=== PATIENT | male | born 1970 | race African-American/Black ===

== ENCOUNTER 2017-04-13 11:40 | Emergency (ER) | payer OTHER ==
[~2017-04-13] VITALS: Ht 170.2 cm; Wt 109.0 kg
[2017-04-13 12:11] LABS: POINT-OF-CARE METER ID UU14100415
[2017-04-13 12:51] LABS: ADD MIUA? NO; BILIRUBIN NEGATIVE; BLOOD NEGATIVE; COLOR YELLOW ((YELLOW)); GLUCOSE (STRIP) >=500; KETONES NEGATIVE; LEUKOCYTES NEGATIVE; NITRITE NEGATIVE; PROTEIN (STRIP) 30; SPECIFIC GRAVITY 1.036 (1.000-1.030); UCUL ADDED? NO
[2017-04-13 12:59] LABS: EOSINOPHIL (%) 1.3 % (0-5); EOSINOPHIL COUNT 0.1 K/uL (0-0.3); HEMATOCRIT 42.8 % (38.0-50.0); IMMATURE GRANULOCYTE (%) 0.3 % (0.0-0.7); INSTRUMENT ABS NEUTROPHIL CT 4.4 K/uL; LYMPHOCYTE COUNT 1.9 K/uL (1.0-2.8); MCH 27.5 PG (29.0-34.0); MCHC 34.1 G/DL (30.0-36.0); MCV 80.8 FL (86-99); MEAN PLAT.VOLUME 10.7 uM^3 (9.0-12.4); MONOCYTE COUNT 0.4 K/uL (0-0.8); NEUTROPHIL (%) 64.4 % (45-76); NEUTROPHIL COUNT 4.4 K/uL (1.8-6.4); PLATELET COUNT 286 K/uL (156-360); RBC DIS.WIDTH-CV 11.9 % (11.8-14.6); RBC DIS.WIDTH-SD 34.5 % (39-53); WHITE BLOOD COUNT 6.8 K/uL (4.1-10.2)
[2017-04-13 13:20] LABS: CHLORIDE 105 mEq/L (99-109); POTASSIUM 4.3 mEq/L (3.7-5.4); SODIUM 135 mEq/L (136-147)
[2017-04-13 13:23] LABS: GLUCOSE 335 mg/dL (70-99)
[2017-04-13 13:24] LABS: ANION GAP 7 MEQ/L (2-14)
[2017-04-13 13:25] LABS: TOTAL BILIRUBIN 0.3 mg/dL (0.0-1.0)
[2017-04-13 13:26] LABS: ALKALINE PHOSPHATASE 94 IU/L (3-129); GFR ESTIMATE (CALCULATED) > 59 mL/min/
[2017-04-13 13:27] LABS: UREA NITROGEN (BUN) 10 mg/dL (9-23)
[2017-04-13 14:03] LABS: Estimated Average Glucose 312 mg/dL (70-123); HEMOGLOBIN A1c (GLYCOHEMOGLOB) 12.5 % HGB (Below 5.7)
[2017-04-13] MEDS ORDERED: LISINOPRIL40 MG PO (14:29)
[2017-04-13] MEDS ORDERED: METFORMIN HCL500 M4 PO (14:29)
[2017-04-13 14:41] LABS: POINT-OF-CARE METER ID UU13113778
[2017-04-13 14:56] VITALS: BP 143/84
== END 2017-04-13 14:58 | disposition home or self-care (01) ==
LOC: EME 11:40
PROVIDERS: Physician Assistant
DX: E11.65 Type 2 diabetes mellitus with hyperglycemia (principal); E86.0 Dehydration; R42 Dizziness and giddiness; G62.9 Polyneuropathy, unspecified; R80.9 Proteinuria, unspecified; I10 Essential (primary) hypertension
CPT/HCPCS: 80053; 81003; 82948; 83036; 85025; 99281; 99284; J7120